=== PATIENT | male | born 1970 | race Caucasian/White ===

== ENCOUNTER 2024-09-15 07:51 | Inpatient (IN) | payer OTHER ==
[~2024-09-15] VITALS: Ht 177.8 cm; Wt 77.3 kg
[2024-09-15] MEDS: LORazepam 1 MG TAB PO STA (08:13)
[2024-09-15 08:25] LABS: HEMATOCRIT 46.5 % (42.0-52.0); HEMOGLOBIN 15.4 g/dl (13.5-17.5); MEAN CORPUSCULAR HEMOGLOBIN 29.6 pg (27.0-33.0); MEAN CORPUSCULAR HGB CONC 33.1 g/dl (32.0-36.5); MEAN CORPUSCULAR VOLUME 89.4 fl (80.0-96.0); PLATELET COUNT, AUTOMATED 590 10^3/uL (150-450); WHITE BLOOD COUNT 7.9 10^3/uL (4.0-10.0)
[2024-09-15 09:04] LABS: ETHYL ALCOHOL (ETHANOL) < 0.003 % (0.000-0.010)
[2024-09-15 09:05] LABS: SALICYLATE LEVEL < 3.0 MG/DL (<30)
[2024-09-15 09:06] LABS: ALBUMIN 3.9 G/DL (3.2-5.2); ALKALINE PHOSPHATASE 92 U/L (40-129); ALT/SGPT 23 U/L (7.0-40); AST/SGOT 13 U/L (<34); BILIRUBIN,DIRECT 0.1 MG/DL (<0.4); BILIRUBIN,TOTAL 0.4 MG/DL (0.3-1.2); BLOOD UREA NITROGEN 18 MG/DL (9-23); CALCIUM LEVEL 10.1 MG/DL (8.5-10.1); CARBON DIOXIDE LEVEL 26 MMOL/L (20-31); CHLORIDE LEVEL 108 MMOL/L (98-107); CREATININE FOR GFR 0.94 MG/DL (0.70-1.30); GLOMERULAR FILTRATION RATE > 60.0 (>56); GLUCOSE, FASTING 83 MG/DL (60-100); POTASSIUM SERUM 4.3 MMOL/L (3.5-5.1); SODIUM LEVEL 140 MMOL/L (136-145); TOTAL PROTEIN 7.1 G/DL (5.7-8.2)
[2024-09-15 09:08] LABS: THYROID STIMULATING HORMONE 1.613 uIU/ML (0.55-4.78)
[2024-09-15 09:26] LABS: BARBITURATES URINE NEGATIVE (NEGATIVE); BENZODIAZEPINES URINE NEGATIVE (NEGATIVE); COCAINE METABOLITE URINE NEGATIVE (NEGATIVE); METHADONE URINE NEGATIVE (NEGATIVE); OPIATES URINE NEGATIVE (NEGATIVE); PHENCYCLIDINE URINE NEGATIVE (NEGATIVE)
[2024-09-15 09:31] LABS: AMPHETAMINES LEVEL URINE POSITIVE (NEGATIVE); CANNABINOIDS URINE POSITIVE (NEGATIVE)
[2024-09-15] MEDS ORDERED: MOM 30ML SUSPENSION UDC PO PRN (10:20)
[2024-09-15 12:54] VITALS: BP 127/82; TEMP 96.4; O2SAT 99
[2024-09-15] MEDS: diphenhydrAMINE 25MG CAP PO PRN (21:26)
[2024-09-15] MEDS: OLANZapine ORAL DISINTEGRATING TAB 5MG PO PRN (21:26)
[2024-09-15] MEDS: traZODone 50 MG TAB PO PRN (21:27)
[2024-09-15] MEDS: ACETAMINOPHEN 325 MG TAB PO PRN (21:29)
[2024-09-16 06:32] VITALS: BP 126/70; TEMP 98.9; O2SAT 99
[2024-09-16] MEDS: IBUPROFEN 400MG TAB PO PRN (09:06)
[2024-09-16] MEDS: DULoxetine 30MG CAPSULE (CYMBALTA) PO SCH (10:11)
[2024-09-16 15:31] VITALS: BP 145/79; TEMP 98.7; O2SAT 99
[2024-09-16] MEDS: MIRTAZAPINE 15 MG TAB PO SCH (21:38)
[2024-09-16] MEDS: PRAZOSIN 1 MG CAP PO SCH (21:39)
[2024-09-17 06:29] VITALS: BP 128/84; TEMP 98.2; O2SAT 98
[2024-09-17] MEDS ORDERED: ONDANSETRON 4MG TAB PO PRN (08:35)
[2024-09-17] MEDS: cloNIDine 0.1MG TABLET PO SCH (08:50)
[2024-09-17] MEDS: BACLOFEN 5MG PER 1/2 TABLET PO SCH (09:33)
[2024-09-17 15:23] VITALS: BP 121/64; TEMP 97.7; O2SAT 98
[2024-09-17] MEDS: ALBUTEROL 90 MCG/ACT 8GM HFA INHALER INH SCH (16:04)
[2024-09-18 06:35] VITALS: BP 103/61; TEMP 98.8; O2SAT 96
[2024-09-18 14:56] VITALS: BP 126/71; TEMP 99.2; O2SAT 98
[2024-09-19 06:33] VITALS: BP 110/69; TEMP 98.4; O2SAT 99
[2024-09-19] MEDS: DULoxetine 20MG CAP (CYMBALTA) PO SCH (09:01)
[2024-09-19 14:00] VITALS: BP 105/61; TEMP 98.1; O2SAT 98
[2024-09-19] MEDS: SERTRALINE HCL 50 MG TAB PO SCH (20:34)
[2024-09-20 06:28] VITALS: BP 106/56; TEMP 97.5; O2SAT 98
[2024-09-20 15:20] VITALS: BP 109/59; TEMP 97.5; O2SAT 99
[2024-09-20] MEDS: OLANZapine 5 MG TAB PO SCH (20:37)
[2024-09-21 06:22] VITALS: BP 117/74; TEMP 98.6; O2SAT 96
[2024-09-21 15:03] VITALS: BP 127/75; TEMP 98.7; O2SAT 95
[2024-09-22 06:53] VITALS: BP 146/93; TEMP 98.5; O2SAT 98
[2024-09-22 14:57] VITALS: BP 121/75; TEMP 97.6; O2SAT 96
[2024-09-23 06:33] VITALS: BP_SYST 119; BP_SYST 145; BP_DIAS 79; BP_DIAS 93; TEMP 97.2; TEMP 97.9; O2SAT 97; O2SAT 98
[2024-09-24 06:28] VITALS: BP 156/89; TEMP 98.9; O2SAT 98
[2024-09-24] MEDS: SERTRALINE HCL 25 MG TABLET PO SCH ×2 (09:00→20:21)
[2024-09-24] MEDS: DIVALPROEX 250MG TAB PO SCH (10:24)
[2024-09-24 15:43] VITALS: BP 113/73; TEMP 99.5; O2SAT 96
[2024-09-25 06:30] VITALS: BP 141/81; TEMP 98.9; O2SAT 98
[2024-09-25] MEDS: methocarbamoL 500 MG TAB PO SCH (11:20)
[2024-09-25] MEDS: NICOTINE 21MG/24HR 1 EA TRANSDERMAL TD PRN (14:22)
[2024-09-25 15:28] VITALS: BP 148/88; TEMP 97.2; O2SAT 95
[2024-09-26 06:24] VITALS: BP 155/79; TEMP 96.8; O2SAT 96
[2024-09-26] MEDS: MAALOX 30 ML SUSP *UDC PO PRN (07:32)
[2024-09-26] MEDS: OMEPRAZOLE 20MG CAP PO SCH (12:12)
[2024-09-26] MEDS: DULoxetine 20MG CAP (CYMBALTA) PO SCH (12:12)
[2024-09-26 15:57] VITALS: BP 136/63; TEMP 97.8; O2SAT 96
[2024-09-26 20:12] VITALS: BP 170/95
[2024-09-26] MEDS: SIMVASTATIN 10 MG TAB PO SCH (20:12)
[2024-09-26 21:07] VITALS: BP 153/76
[2024-09-27 06:32] VITALS: BP 152/90; TEMP 97; O2SAT 96
[2024-09-27] MEDS ORDERED: DULO1CAP4 PO (09:21)
[2024-09-27] MEDS ORDERED: OLAN1TAB16 PO (09:21)
[2024-09-27] MEDS ORDERED: MIRT-10 PO (09:21)
[2024-09-27] MEDS ORDERED: NICO21PAT TD (09:21)
[2024-09-27] MEDS ORDERED: VENTAER INH (09:21)
[2024-09-27] MEDS ORDERED: SIMV10TA21 PO (09:21)
[2024-09-27] MEDS ORDERED: OMEP-173 PO (09:21)
[2024-09-27] MEDS ORDERED: METH-1164 PO (09:21)
[2024-09-27] MEDS ORDERED: DEPA250T32 PO (09:21)
[2024-09-27] MEDS ORDERED: PRAZ1CAP PO (09:21)
== END 2024-09-27 12:25 | disposition home or self-care (01) | DRG 753 ==
LOC: M ED 07:51 → M ED INP 10:17 → M PSY 11:51
PROVIDERS: ADMIT Psychiatry & Neurology Psychiatry; ATTEND Psychiatry & Neurology Psychiatry
DX: F33.8 Other recurrent depressive disorders (principal); R45.851 Suicidal ideations; F43.10 Post-traumatic stress disorder, unspecified; F19.90 Other psychoactive substance use, unspecified, uncomplicated; F60.89 Other specific personality disorders; F15.93 Other stimulant use, unspecified with withdrawal; F41.9 Anxiety disorder, unspecified; B34.9 Viral infection, unspecified; F17.200 Nicotine dependence, unspecified, uncomplicated; Z59.00 Homelessness unspecified; Z91.51 Personal history of suicidal behavior; Z76.5 Malingerer [conscious simulation]; Z56.0 Unemployment, unspecified

== ENCOUNTER 2024-10-03 03:32 | Inpatient (IN) | payer OTHER ==
[~2024-10-03] VITALS: Ht 177.8 cm; Wt 81.5 kg
[~2024-10-03 03:32] MED LIST: DEPA250T32 PO; DULO1CAP4 PO; METH-1164 PO; MIRT-10 PO; NICO21PAT TD; OLAN1TAB16 PO; OMEP-173 PO; PRAZ1CAP PO; SIMV10TA21 PO; VENTAER INH
[2024-10-03] MEDS: NS 1,000 ML IV ONE (03:55)
[2024-10-03 04:33] LABS: ETHYL ALCOHOL (ETHANOL) < 0.003 % (0.000-0.010); VALPROIC ACID (DEPAKOTE) 9.4 UG/ML (50.0-100.0)
[2024-10-03 04:34] LABS: SALICYLATE LEVEL < 3.0 MG/DL (<30)
[2024-10-03 04:35] LABS: ALBUMIN 3.9 G/DL (3.2-5.2); ALKALINE PHOSPHATASE 83 U/L (40-129); ALT/SGPT 26 U/L (7.0-40); AST/SGOT 30 U/L (<34); BILIRUBIN,DIRECT < 0.1 MG/DL (<0.4); BILIRUBIN,TOTAL 0.4 MG/DL (0.3-1.2); BLOOD UREA NITROGEN 24 MG/DL (9-23); CALCIUM LEVEL 9.8 MG/DL (8.5-10.1); CARBON DIOXIDE LEVEL 21 MMOL/L (20-31); CHLORIDE LEVEL 104 MMOL/L (98-107); GLOMERULAR FILTRATION RATE > 60.0 (>56); GLUCOSE, FASTING 100 MG/DL (60-100); POTASSIUM SERUM 4.3 MMOL/L (3.5-5.1); SODIUM LEVEL 139 MMOL/L (136-145); TOTAL PROTEIN 7.2 G/DL (5.7-8.2)
[2024-10-03 04:37] LABS: THYROID STIMULATING HORMONE 1.434 uIU/ML (0.55-4.78)
[2024-10-03 04:38] LABS: CPK CREATINE PHOSPHOKINASE 481 U/L (46-171)
[2024-10-03 04:47] LABS: BASO % 0.3 % (0.0-1.0); EOS # 0.1 10^3/uL (0.0-0.5); EOS % 0.9 % (0.0-3.0); HEMATOCRIT 38.3 % (42.0-52.0); HEMOGLOBIN 12.9 g/dl (13.5-17.5); LYMPH # 1.3 10^3/uL (1.5-5.0); LYMPH % 11.6 % (24.0-44.0); MEAN CORPUSCULAR HEMOGLOBIN 29.5 pg (27.0-33.0); MEAN CORPUSCULAR HGB CONC 33.7 g/dl (32.0-36.5); MEAN CORPUSCULAR VOLUME 87.4 fl (80.0-96.0); MONO # 0.9 10^3/uL (0.0-0.8); MONO % 7.4 % (2.0-8.0); NEUTROPHILS # 9.2 10^3/uL (1.5-8.5); NEUTROPHILS % 79.4 % (36.0-66.0); PLATELET COUNT, AUTOMATED 417 10^3/uL (150-450); RED BLOOD COUNT 4.38 10^6/uL (4.30-6.10); WHITE BLOOD COUNT 11.6 10^3/uL (4.0-10.0)
[2024-10-03 05:26] LABS: BARBITURATES URINE NEGATIVE (NEGATIVE); BENZODIAZEPINES URINE NEGATIVE (NEGATIVE); CANNABINOIDS URINE NEGATIVE (NEGATIVE); METHADONE URINE NEGATIVE (NEGATIVE); OPIATES URINE NEGATIVE (NEGATIVE); PHENCYCLIDINE URINE NEGATIVE (NEGATIVE)
[2024-10-03 05:27] LABS: AMPHETAMINES LEVEL URINE POSITIVE (NEGATIVE); COCAINE METABOLITE URINE POSITIVE (NEGATIVE)
[2024-10-03] MEDS ORDERED: MOM 30ML SUSPENSION UDC PO PRN (12:15)
[2024-10-03] MEDS ORDERED: MAALOX 30 ML SUSP *UDC PO PRN (12:15)
[2024-10-03] MEDS: IBUPROFEN 400MG TAB PO PRN (13:27)
[2024-10-03 13:40] VITALS: BP 138/80; TEMP 97.4; O2SAT 98
[2024-10-03] MEDS: NICOTINE 21MG/24HR 1 EA TRANSDERMAL TD SCH (14:50)
[2024-10-03] MEDS: ACETAMINOPHEN 325 MG TAB PO PRN (18:02)
[2024-10-03] MEDS: traZODone 50 MG TAB PO PRN (20:34)
[2024-10-03] MEDS: diphenhydrAMINE 25MG CAP PO PRN (20:34)
[2024-10-03] MEDS: traZODone 50 MG TAB PO ONE (22:26)
[2024-10-04 06:25] VITALS: BP 147/72; TEMP 97.5; O2SAT 96
[2024-10-04 06:29] VITALS: BP 135/87; TEMP 97; O2SAT 98
[2024-10-04] MEDS ORDERED: OLAN1TAB16 PO (09:29)
[2024-10-04] MEDS ORDERED: NICO21DI9 TD (09:29)
[2024-10-04] MEDS ORDERED: SIMV10TA21 PO (09:29)
[2024-10-04] MEDS ORDERED: MIRT-88 PO (09:29)
[2024-10-04] MEDS ORDERED: METH-1164 PO (09:29)
[2024-10-04] MEDS ORDERED: DIVA250T67 PO (09:29)
[2024-10-04] MEDS ORDERED: OMEP1CAP73 PO (09:29)
[2024-10-04] MEDS ORDERED: DULO20CA27 PO (09:29)
[2024-10-04] MEDS ORDERED: PRAZ1CAP PO (09:29)
[2024-10-04] MEDS ORDERED: VENTAER INH (09:29)
[2024-10-04] MEDS ORDERED: HOME MED LIST COMPLETE! XX SCH (09:30)
[2024-10-04] MEDS: OLANZapine ORAL DISINTEGRATING TAB 5MG PO PRN (09:55)
[2024-10-04] MEDS: DIVALPROEX 250MG TAB PO SCH (09:55)
[2024-10-04] MEDS: ALBUTEROL 90 MCG/ACT 8GM HFA INHALER INH PRN (11:20)
[2024-10-04] MEDS: ONDANSETRON 4MG TAB PO PRN (11:21)
[2024-10-04 17:24] VITALS: BP 140/78; TEMP 97; O2SAT 98
[2024-10-04] MEDS: methocarbamoL 500 MG TAB PO PRN (18:13)
[2024-10-04] MEDS: DICLOFENAC EPOLAMINE 1.3% PATCH TOP PRN (18:14)
[2024-10-04] MEDS: PRAZOSIN 1 MG CAP PO SCH (20:04)
[2024-10-04] MEDS: MIRTAZAPINE 15 MG TAB PO SCH (20:04)
[2024-10-05 06:44] VITALS: BP 151/84; TEMP 97.8; O2SAT 98
[2024-10-05] MEDS: buPROPion 75 MG TAB PO SCH (09:01)
[2024-10-05 15:41] VITALS: BP 153/67; TEMP 97.9; O2SAT 98
[2024-10-06 06:22] VITALS: BP 154/87; TEMP 97.5; O2SAT 98
[2024-10-06 15:34] VITALS: BP 130/81; TEMP 98.4; O2SAT 100
[2024-10-07 06:35] VITALS: BP 158/85; TEMP 97; O2SAT 98
[2024-10-07] MEDS: IBUPROFEN 600MG TAB PO PRN (10:53)
[2024-10-07] MEDS ORDERED: ACETAMINOPHEN 500 MG TAB PO PRN (16:00)
[2024-10-08 06:23] VITALS: BP 143/88; TEMP 98.5; O2SAT 100
[2024-10-08] MEDS: buPROPion 75 MG TAB PO SCH (09:09)
[2024-10-08] MEDS: ANALGESIC BALM CRM 3OZ TOP PRN (15:49)
[2024-10-08 15:51] VITALS: BP 148/86; TEMP 97.9; O2SAT 98
[2024-10-09 06:22] VITALS: BP 139/70; TEMP 97.5; O2SAT 100
[2024-10-09 15:01] VITALS: BP 144/80; TEMP 97.7; O2SAT 99
[2024-10-09] MEDS: QUEtiapine FUMARATE 50MG TAB PO SCH (20:45)
[2024-10-10 16:15] VITALS: BP 142/84; TEMP 97.7; O2SAT 98
[2024-10-11 06:46] VITALS: BP 138/82; TEMP 97.8; O2SAT 98
[2024-10-11 18:46] VITALS: BP 144/72; TEMP 97.8; O2SAT 97
[2024-10-12 06:30] VITALS: BP 129/64; TEMP 98.1; O2SAT 97
[2024-10-12] MEDS: QUEtiapine FUMARATE 25 MG TAB PO PRN (23:29)
[2024-10-13 06:33] VITALS: BP 150/88; TEMP 97.2; O2SAT 97
[2024-10-14 15:00] VITALS: BP 130/90; TEMP 98.4; O2SAT 98
[2024-10-14 20:48] VITALS: BP 148/74
[2024-10-15 06:32] VITALS: BP 121/78; TEMP 98.3; O2SAT 97
[2024-10-15] MEDS ORDERED: QUET50TA4 PO (13:36)
[2024-10-15] MEDS ORDERED: BUPR75TA5 PO (13:36)
[2024-10-15] MEDS ORDERED: DICL1PAT6 TOP (13:36)
== END 2024-10-15 14:31 | disposition home or self-care (01) | DRG 751 ==
LOC: M ED 03:32 → EEVIPCON 12:15 → M ED INP 12:15 → M PSY 13:08
PROVIDERS: ADMIT Psychiatry & Neurology Psychiatry; ATTEND Psychiatry & Neurology Psychiatry
DX: F33.2 Major depressive disorder, recurrent severe without psychotic features (principal); F43.10 Post-traumatic stress disorder, unspecified; F60.89 Other specific personality disorders; R45.851 Suicidal ideations; F14.90 Cocaine use, unspecified, uncomplicated; F15.90 Other stimulant use, unspecified, uncomplicated; M25.512 Pain in left shoulder; F41.9 Anxiety disorder, unspecified; F17.200 Nicotine dependence, unspecified, uncomplicated; J45.909 Unspecified asthma, uncomplicated; Z59.00 Homelessness unspecified; Z56.0 Unemployment, unspecified; Z91.51 Personal history of suicidal behavior; Z79.899 Other long term (current) drug therapy; Z76.5 Malingerer [conscious simulation]

== ENCOUNTER → 2024-10-25 | Outpatient (REF) | payer OTHER, MEDICAID ==
[~2024-10-25] MED LIST changes: +BUPR75TA5 PO; +DICL1PAT6 TOP; +DIVA250T67 PO; +DULO20CA27 PO; +MIRT-88 PO; +NICO21DI9 TD; +OMEP1CAP73 PO; +QUET50TA4 PO
== END ==
LOC: M LAB REF 12:04
PROVIDERS: ATTEND Family Medicine Addiction Medicine
DX: J02.9 Acute pharyngitis, unspecified (principal)

== ENCOUNTER 2024-11-13 14:49 | Inpatient (IN) | payer MEDICAID, OTHER ==
[~2024-11-13] VITALS: Ht 177.8 cm; Wt 71.1 kg
[2024-11-13] MEDS: LORazepam 1 MG TAB PO STA (15:44)
[2024-11-13 16:07] LABS: HEMATOCRIT 44.1 % (42.0-52.0); HEMOGLOBIN 14.7 g/dl (13.5-17.5); MEAN CORPUSCULAR HEMOGLOBIN 29.1 pg (27.0-33.0); MEAN CORPUSCULAR HGB CONC 33.3 g/dl (32.0-36.5); MEAN CORPUSCULAR VOLUME 87.3 fl (80.0-96.0); PLATELET COUNT, AUTOMATED 461 10^3/uL (150-450); RED BLOOD COUNT 5.05 10^6/uL (4.30-6.10); WHITE BLOOD COUNT 6.8 10^3/uL (4.0-10.0)
[2024-11-13 16:36] LABS: ETHYL ALCOHOL (ETHANOL) < 0.003 % (0.000-0.010)
[2024-11-13 16:38] LABS: SALICYLATE LEVEL < 3.0 MG/DL (<30)
[2024-11-13 16:39] LABS: ALBUMIN 3.6 G/DL (3.2-5.2); ALKALINE PHOSPHATASE 92 U/L (40-129); ALT/SGPT 21 U/L (7.0-40); AST/SGOT 10 U/L (<34); BILIRUBIN,DIRECT 0.1 MG/DL (<0.4); BILIRUBIN,TOTAL 0.4 MG/DL (0.3-1.2); BLOOD UREA NITROGEN 18 MG/DL (9-23); CALCIUM LEVEL 10.2 MG/DL (8.5-10.1); CARBON DIOXIDE LEVEL 25 MMOL/L (20-31); CHLORIDE LEVEL 104 MMOL/L (98-107); CK-MB VALUE MASS < 1.0 NG/ML (<3.6); CPK CREATINE PHOSPHOKINASE 43 U/L (46-171); CREATININE FOR GFR 0.82 MG/DL (0.70-1.30); GLOMERULAR FILTRATION RATE > 60.0 (>56); GLUCOSE, FASTING 89 MG/DL (60-100); MB/CK RELATIVE INDEX 2.32 (< OR =4); POTASSIUM SERUM 3.9 MMOL/L (3.5-5.1); SODIUM LEVEL 142 MMOL/L (136-145)
[2024-11-13 16:40] LABS: THYROID STIMULATING HORMONE 0.971 uIU/ML (0.55-4.78)
[2024-11-13] MEDS ORDERED: BUPR75TA5 PO (17:16)
[2024-11-13] MEDS ORDERED: QUET50TA4 PO (17:16)
[2024-11-13] MEDS ORDERED: DICL25TA12 PO (17:17)
[2024-11-13] MEDS ORDERED: HOME MED LIST COMPLETE! XX SCH (17:30)
[2024-11-13 17:50] LABS: AMPHETAMINES LEVEL URINE NEGATIVE (NEGATIVE); BARBITURATES URINE NEGATIVE (NEGATIVE); BENZODIAZEPINES URINE NEGATIVE (NEGATIVE); CANNABINOIDS URINE NEGATIVE (NEGATIVE); COCAINE METABOLITE URINE NEGATIVE (NEGATIVE); METHADONE URINE NEGATIVE (NEGATIVE); OPIATES URINE NEGATIVE (NEGATIVE); PHENCYCLIDINE URINE NEGATIVE (NEGATIVE)
[2024-11-13] MEDS ORDERED: MAALOX 30 ML SUSP *UDC PO PRN (19:25)
[2024-11-13] MEDS ORDERED: MOM 30ML SUSPENSION UDC PO PRN (19:25)
[2024-11-13 22:06] VITALS: BP 118/77; TEMP 97.7; O2SAT 99
[2024-11-13 22:10] VITALS: BP 118/77; TEMP 97.7; O2SAT 99
[2024-11-13] MEDS: diphenhydrAMINE 25MG CAP PO PRN (23:41)
[2024-11-13] MEDS: traZODone 50 MG TAB PO PRN (23:41)
[2024-11-14 06:40] VITALS: BP 135/73; TEMP 97.4; O2SAT 99
[2024-11-14] MEDS: NICOTINE 14 MG/24 HR TRANSDERMAL TD SCH (09:35)
[2024-11-14 15:16] VITALS: BP 116/77; TEMP 97.8; O2SAT 98
[2024-11-14] MEDS ORDERED: ALBUTEROL 90 MCG/ACT 8GM HFA INHALER INH PRN (16:45)
[2024-11-14] MEDS ORDERED: DICLOFENAC EPOLAMINE 1.3% PATCH TOP PRN (16:45)
[2024-11-14] MEDS ORDERED: PILL CUTTER 1 EACH XX PRN (17:00)
[2024-11-14] MEDS: QUEtiapine FUMARATE 50MG TAB PO SCH (20:15)
[2024-11-14] MEDS: methocarbamoL 500 MG TAB PO SCH (20:15)
[2024-11-14] MEDS: IBUPROFEN 400MG TAB PO PRN (20:15)
[2024-11-14] MEDS: DIVALPROEX 250MG TAB PO SCH (20:15)
[2024-11-14] MEDS: MIRTAZAPINE 15 MG TAB PO SCH (20:15)
[2024-11-14] MEDS: SIMVASTATIN 10 MG TAB PO SCH (20:15)
[2024-11-14] MEDS: PRAZOSIN 1 MG CAP PO SCH (20:16)
[2024-11-14] MEDS: OMEPRAZOLE 20MG CAP PO SCH (20:16)
[2024-11-15 06:33] VITALS: BP 123/65; TEMP 98.4; O2SAT 98
[2024-11-15] MEDS: buPROPion 75 MG TAB PO SCH (09:03)
[2024-11-15] MEDS: OLANZapine 5 MG TAB PO PRN (09:27)
[2024-11-15 15:59] VITALS: BP 123/64; TEMP 97.7; O2SAT 96
[2024-11-16 06:40] VITALS: BP 117/74; TEMP 98.2; O2SAT 96
[2024-11-16] MEDS: DIVALPROEX 500 MG TAB PO SCH (09:37)
[2024-11-16] MEDS: ACETAMINOPHEN 325 MG TAB PO PRN (14:33)
[2024-11-16] MEDS: LIDOCAINE VISCOUS 2% SOLN 15ML UDC SS PRN (14:37)
[2024-11-16 14:46] VITALS: BP 118/70; TEMP 99; O2SAT 97
[2024-11-17 06:30] VITALS: BP 146/88; TEMP 98.8; O2SAT 97
[2024-11-18 07:04] VITALS: BP 136/71; TEMP 96.8; O2SAT 98
[2024-11-18] MEDS: BENZOIN TINCTURE 60ML BTL TOP PRN (09:23)
[2024-11-18 14:55] VITALS: BP 126/73; TEMP 98.7; O2SAT 98
[2024-11-19 06:28] VITALS: BP 168/85; TEMP 97.8; O2SAT 98
[2024-11-19 15:49] VITALS: BP 132/68; TEMP 99; O2SAT 98
[2024-11-20 06:48] VITALS: BP 140/92; TEMP 98.4; O2SAT 97
[2024-11-20 14:59] VITALS: BP 127/81; TEMP 98.8; O2SAT 97
[2024-11-20 19:56] VITALS: BP 127/81
[2024-11-20] MEDS: DIVALPROEX 500 MG TAB PO SCH (19:57)
[2024-11-21 06:17] VITALS: BP 135/79; TEMP 98.2; O2SAT 99
[2024-11-21] MEDS ORDERED: DEPA1TAB3 PO (08:40)
== END 2024-11-21 11:09 | disposition home or self-care (01) | DRG 754 ==
LOC: M ED 14:49 → M ED INP 19:21 → M PSY 22:04
PROVIDERS: ADMIT Psychiatry & Neurology Neurology; ATTEND Psychiatry & Neurology Psychiatry
DX: F32.A Depression, unspecified (principal); F20.9 Schizophrenia, unspecified; R45.851 Suicidal ideations; F41.1 Generalized anxiety disorder; F43.10 Post-traumatic stress disorder, unspecified; F31.9 Bipolar disorder, unspecified; F14.90 Cocaine use, unspecified, uncomplicated; F15.90 Other stimulant use, unspecified, uncomplicated; F12.90 Cannabis use, unspecified, uncomplicated; F13.90 Sedative, hypnotic, or anxiolytic use, unspecified, uncomplicated; F17.210 Nicotine dependence, cigarettes, uncomplicated; K21.9 Gastro-esophageal reflux disease without esophagitis; Z79.899 Other long term (current) drug therapy

== ENCOUNTER 2024-12-07 21:07 | Emergency (ER) | payer MEDICAID, OTHER ==
[~2024-12-07] VITALS: Ht 177.8 cm; Wt 72.7 kg
[~2024-12-07 21:07] MED LIST changes: +DEPA1TAB3 PO; +DICL25TA12 PO
[2024-12-07 21:22] VITALS: BP 108/68; TEMP 96.6; O2SAT 96
== END 2024-12-07 23:10 | disposition left against medical advice (07) ==
LOC: EDBD 21:07 → M ED 21:07
DX: Z53.21 Procedure and treatment not carried out due to patient leaving prior to being seen by health care provider (principal)

== ENCOUNTER 2024-12-19 08:57 | Inpatient (IN) | payer OTHER ==
[~2024-12-19] VITALS: Ht 177.8 cm; Wt 74.9 kg
[2024-12-19 10:28] LABS: HEMATOCRIT 43.9 % (42.0-52.0); HEMOGLOBIN 14.3 g/dl (13.5-17.5); MEAN CORPUSCULAR HEMOGLOBIN 29.5 pg (27.0-33.0); MEAN CORPUSCULAR HGB CONC 32.6 g/dl (32.0-36.5); MEAN CORPUSCULAR VOLUME 90.5 fl (80.0-96.0); PLATELET COUNT, AUTOMATED 578 10^3/uL (150-450); RED BLOOD COUNT 4.85 10^6/uL (4.30-6.10); WHITE BLOOD COUNT 5.3 10^3/uL (4.0-10.0)
[2024-12-19 10:29] LABS: METHADONE URINE NEGATIVE (NEGATIVE)
[2024-12-19 10:30] LABS: AMPHETAMINES LEVEL URINE NEGATIVE (NEGATIVE); COCAINE METABOLITE URINE NEGATIVE (NEGATIVE); OPIATES URINE NEGATIVE (NEGATIVE); PHENCYCLIDINE URINE NEGATIVE (NEGATIVE)
[2024-12-19 10:33] LABS: ETHYL ALCOHOL (ETHANOL) < 0.003 % (0.000-0.010)
[2024-12-19 10:35] LABS: ALBUMIN 3.8 G/DL (3.2-5.2); ALKALINE PHOSPHATASE 78 U/L (40-129); ALT/SGPT 17 U/L (7.0-40); AST/SGOT 9 U/L (<34); BILIRUBIN,DIRECT < 0.1 MG/DL (<0.4); BILIRUBIN,TOTAL 0.4 MG/DL (0.3-1.2); BLOOD UREA NITROGEN 16 MG/DL (9-23); CALCIUM LEVEL 9.7 MG/DL (8.5-10.1); CARBON DIOXIDE LEVEL 25 MMOL/L (20-31); CHLORIDE LEVEL 105 MMOL/L (98-107); CREATININE FOR GFR 0.92 MG/DL (0.70-1.30); GLOMERULAR FILTRATION RATE > 60.0 (>56); GLUCOSE, FASTING 88 MG/DL (60-100); POTASSIUM SERUM 4.4 MMOL/L (3.5-5.1); SALICYLATE LEVEL < 3.0 MG/DL (<30); SODIUM LEVEL 142 MMOL/L (136-145); THYROID STIMULATING HORMONE 1.002 uIU/ML (0.55-4.78); TOTAL PROTEIN 7.4 G/DL (5.7-8.2)
[2024-12-19 10:43] LABS: BARBITURATES URINE NEGATIVE (NEGATIVE); BENZODIAZEPINES URINE NEGATIVE (NEGATIVE); CANNABINOIDS URINE POSITIVE (NEGATIVE)
[2024-12-19] MEDS ORDERED: DICL1PAT6 TOP (13:08)
[2024-12-19] MEDS ORDERED: DIVA500T94 PO (13:08)
[2024-12-19] MEDS ORDERED: HOME MED LIST COMPLETE! XX SCH (13:10)
[2024-12-19 14:35] VITALS: BP 115/64; TEMP 98.4; O2SAT 98
[2024-12-19] MEDS ORDERED: MOM 30ML SUSPENSION UDC PO PRN (16:05)
[2024-12-19] MEDS ORDERED: MAALOX 30 ML SUSP *UDC PO PRN (16:05)
[2024-12-19] MEDS ORDERED: NICOTINE POLACRILEX 2 MG GUM PO PRN (16:10)
[2024-12-19] MEDS: diphenhydrAMINE 25MG CAP PO PRN (20:05)
[2024-12-19] MEDS: traZODone 50 MG TAB PO PRN (20:05)
[2024-12-20 06:36] VITALS: BP 146/89; TEMP 98.7; O2SAT 99
[2024-12-20] MEDS: OLANZapine ORAL DISINTEGRATING TAB 5MG PO PRN (10:48)
[2024-12-20] MEDS: ACETAMINOPHEN 325 MG TAB PO PRN (10:48)
[2024-12-20] MEDS ORDERED: ALBUTEROL 90 MCG/ACT 8GM HFA INHALER INH PRN (11:15)
[2024-12-20] MEDS ORDERED: DICLOFENAC EPOLAMINE 1.3% PATCH TOP PRN (11:15)
[2024-12-20] MEDS: OMEPRAZOLE 20MG CAP PO SCH (12:43)
[2024-12-20] MEDS: methocarbamoL 500 MG TAB PO SCH (12:43)
[2024-12-20] MEDS: buPROPion 75 MG TAB PO SCH (12:43)
[2024-12-20 17:26] VITALS: BP 119/74; TEMP 98.2; O2SAT 98
[2024-12-20] MEDS: SIMVASTATIN 10 MG TAB PO SCH (20:39)
[2024-12-20] MEDS: QUEtiapine FUMARATE 50MG TAB PO SCH (20:39)
[2024-12-20] MEDS: MIRTAZAPINE 15 MG TAB PO SCH (20:39)
[2024-12-20] MEDS: DIVALPROEX 500 MG TAB PO SCH (20:40)
[2024-12-20] MEDS: PRAZOSIN 1 MG CAP PO SCH (20:40)
[2024-12-21 06:36] VITALS: BP 133/79; TEMP 98.2; O2SAT 96
[2024-12-21] MEDS: IBUPROFEN 400MG TAB PO PRN (09:21)
[2024-12-21] MEDS: PREGABALIN 50 MG CAP (LYRICA) PO SCH (10:19)
[2024-12-21 16:49] VITALS: BP 122/79; TEMP 98.7; O2SAT 99
[2024-12-22 06:26] VITALS: BP 144/86; TEMP 97.1; O2SAT 97
[2024-12-22 15:39] VITALS: BP 132/81; TEMP 98.7; O2SAT 97
[2024-12-23 06:21] VITALS: BP 129/84; TEMP 98.4; O2SAT 97
[2024-12-23] MEDS: OLANZapine ORAL DISINTEGRATING TAB 5MG PO ONE (12:13)
[2024-12-23 16:16] VITALS: BP 130/82; TEMP 98.5; O2SAT 96
[2024-12-23 20:08] VITALS: BP 130/82
[2024-12-24 06:50] VITALS: BP 148/81; TEMP 98.7; O2SAT 96
[2024-12-24] MEDS: OLANZapine ORAL DISINTEGRATING TAB 5MG PO PRN (08:35)
[2024-12-24] MEDS: CEPACOL LOZENGE PO PRN (12:57)
[2024-12-24] MEDS ORDERED: PREG50CA PO (14:36)
[2024-12-24] MEDS ORDERED: VENTAER INH (14:36)
[2024-12-24] MEDS ORDERED: OMEP1CAP73 PO (14:36)
[2024-12-24] MEDS ORDERED: BUPR75TA5 PO (14:36)
[2024-12-24] MEDS ORDERED: MIRT-84 PO (14:36)
[2024-12-24] MEDS ORDERED: NICO21DI9 TD (14:36)
[2024-12-24] MEDS ORDERED: QUET50TA4 PO (14:36)
[2024-12-24] MEDS ORDERED: DIVA500T94 PO (14:36)
[2024-12-24] MEDS ORDERED: SIMV10TA21 PO (14:36)
[2024-12-24] MEDS ORDERED: DICL25TA12 PO (14:36)
[2024-12-24] MEDS ORDERED: BENZ1LOZ9 PO (14:36)
== END 2024-12-24 17:21 | disposition home or self-care (01) | DRG 753 ==
LOC: EEVIPCON 08:57 → M ED 08:57 → M ED INP 12:53 → M PSY 14:32
PROVIDERS: ADMIT Psychiatry & Neurology Psychiatry; ATTEND Psychiatry & Neurology Psychiatry
DX: F31.9 Bipolar disorder, unspecified (principal); F41.9 Anxiety disorder, unspecified; F60.2 Antisocial personality disorder; R45.851 Suicidal ideations; F43.10 Post-traumatic stress disorder, unspecified; F17.200 Nicotine dependence, unspecified, uncomplicated; E78.5 Hyperlipidemia, unspecified; K21.9 Gastro-esophageal reflux disease without esophagitis; Z76.5 Malingerer [conscious simulation]; Z56.0 Unemployment, unspecified; Z79.899 Other long term (current) drug therapy

== ENCOUNTER → 2025-02-26 | Outpatient (REF) | payer OTHER, MEDICAID ==
[~2025-02-26] MED LIST changes: +BENZ1LOZ9 PO; +DIVA500T94 PO; +MIRT-84 PO; +PREG50CA PO
[2025-02-26 17:55] LABS: BASO # 0.1 10^3/uL (0.0-0.2); BASO % 1.1 % (0.0-1.0); EOS # 0.1 10^3/uL (0.0-0.5); EOS % 1.8 % (0.0-3.0); HEMATOCRIT 44.1 % (42.0-52.0); HEMOGLOBIN 14.8 g/dl (13.5-17.5); LYMPH # 1.6 10^3/uL (1.5-5.0); LYMPH % 28.7 % (24.0-44.0); MEAN CORPUSCULAR HGB CONC 33.6 g/dl (32.0-36.5); MEAN CORPUSCULAR VOLUME 89.3 fl (80.0-96.0); MONO # 0.4 10^3/uL (0.0-0.8); MONO % 6.6 % (2.0-8.0); NEUTROPHILS # 3.5 10^3/uL (1.5-8.5); NEUTROPHILS % 61.6 % (36.0-66.0); PLATELET COUNT, AUTOMATED 384 10^3/uL (150-450); RED BLOOD COUNT 4.94 10^6/uL (4.30-6.10); WHITE BLOOD COUNT 5.6 10^3/uL (4.0-10.0)
[2025-02-26 18:01] LABS: ERYTHROCYTE SEDIMENTATION RATE 10 mm/hr (0-20)
[2025-02-26 18:03] LABS: ALKALINE PHOSPHATASE 79 U/L (40-129); ALT/SGPT 15 U/L (7.0-40); AST/SGOT 11 U/L (<34); BILIRUBIN,TOTAL 0.5 MG/DL (0.3-1.2); BLOOD UREA NITROGEN 11 MG/DL (9-23); CALCIUM LEVEL 9.4 MG/DL (8.5-10.1); CARBON DIOXIDE LEVEL 28 MMOL/L (20-31); CHLORIDE LEVEL 104 MMOL/L (98-107); GLOMERULAR FILTRATION RATE > 90.0 (>56); GLUCOSE, FASTING 88 MG/DL (60-100); POTASSIUM SERUM 4.4 MMOL/L (3.5-5.1); SODIUM LEVEL 139 MMOL/L (136-145)
[2025-02-26 18:07] LABS: VITAMIN B12 LEVEL 534 PG/ML (211-911)
[2025-02-26 18:10] LABS: FOLATE 19.5 NG/ML (>5.4)
[2025-02-26 18:22] LABS: HEMOGLOBIN A1c 4.8 % (4.0-6.0)
== END ==
LOC: M LAB REF 17:05
PROVIDERS: ATTEND Student in an Organized Health Care Education/Training Program
DX: R20.0 Anesthesia of skin (principal)

== ENCOUNTER 2025-05-02 14:00 | Inpatient (IN) | payer MEDICAID, OTHER ==
[~2025-05-02] VITALS: Ht 177.8 cm; Wt 71.9 kg
[~2025-05-02 14:00] MED LIST changes: -DEPA250T32 PO; +DIVA-41 PO; +DIVA-65 PO; -DIVA500T94 PO; -PREG50CA PO; +PREG50CA87 PO
[2025-05-02] MEDS: LORazepam 1 MG TAB PO ONE (14:27)
[2025-05-02 14:39] LABS: PLATELET COUNT, AUTOMATED 372 10^3/uL (150-450)
[2025-05-02 14:56] LABS: BARBITURATES URINE NEGATIVE (NEGATIVE); BENZODIAZEPINES URINE NEGATIVE (NEGATIVE); METHADONE URINE NEGATIVE (NEGATIVE); OPIATES URINE NEGATIVE (NEGATIVE); PHENCYCLIDINE URINE NEGATIVE (NEGATIVE)
[2025-05-02 14:57] LABS: AMPHETAMINES LEVEL URINE POSITIVE (NEGATIVE); CANNABINOIDS URINE POSITIVE (NEGATIVE); COCAINE METABOLITE URINE POSITIVE (NEGATIVE)
[2025-05-02 14:59] LABS: ETHYL ALCOHOL (ETHANOL) 0.004 % (0.000-0.010)
[2025-05-02 15:00] LABS: ALT/SGPT 36 U/L (7.0-40); AST/SGOT 47 U/L (<34); CALCIUM LEVEL 9.0 MG/DL (8.5-10.1); CARBON DIOXIDE LEVEL 26 MMOL/L (20-31); CHLORIDE LEVEL 100 MMOL/L (98-107); CREATININE FOR GFR 1.04 MG/DL (0.70-1.30); GLOMERULAR FILTRATION RATE 85.3 (>56); POTASSIUM SERUM 3.8 MMOL/L (3.5-5.1); SALICYLATE LEVEL < 3.0 MG/DL (<30); SODIUM LEVEL 139 MMOL/L (136-145)
[2025-05-02] MEDS ORDERED: HOME MED LIST COMPLETE! XX SCH (20:25)
[2025-05-02] MEDS ORDERED: MOM 30 ML SUSPENSION UDC PO PRN (21:30)
[2025-05-02] MEDS ORDERED: MAALOX 30 ML SUSP *UDC PO PRN (21:30)
[2025-05-02 22:50] VITALS: BP 121/71; TEMP 97.2; O2SAT 98
[2025-05-03 06:34] VITALS: BP 133/70; TEMP 98.5; O2SAT 98
[2025-05-03] MEDS: LORazepam 1 MG TAB PO PRN (09:58)
[2025-05-03 15:24] VITALS: BP 106/60; TEMP 98.2; O2SAT 96
[2025-05-03 16:30] LABS: IRON (FE) 73 UG/DL (65-175); PERCENT SATURATION 29.1 % (19.7-50.0)
[2025-05-03 16:34] LABS: VITAMIN B12 LEVEL 649 PG/ML (211-911)
[2025-05-03] MEDS: IBUPROFEN 400 MG TAB PO PRN (22:27)
[2025-05-04 06:27] VITALS: BP 140/82; TEMP 98.1; O2SAT 98
[2025-05-04] MEDS: buPROPion **XL** 150 MG TABLET PO SCH (09:53)
[2025-05-04 11:29] VITALS: BP 140/82; TEMP 98.1; O2SAT 98
[2025-05-04] MEDS: NICOTINE 14 MG/24 HR TRANSDERMAL TD SCH (12:09)
[2025-05-04 15:24] VITALS: BP 116/58; TEMP 97.7; O2SAT 98
[2025-05-04] MEDS: DIVALPROEX 500 MG *ER* TAB PO SCH (20:51)
[2025-05-04] MEDS: QUEtiapine FUMARATE 50MG TAB PO SCH (20:51)
[2025-05-05 06:54] VITALS: BP 140/80; TEMP 97.9; O2SAT 99
[2025-05-05 09:59] VITALS: BP 140/80; TEMP 97.9; O2SAT 99
[2025-05-05 15:05] VITALS: BP 135/80; TEMP 97.8; O2SAT 98
[2025-05-06 06:17] VITALS: BP 143/82; TEMP 97.7; O2SAT 99
[2025-05-06] MEDS: LITHIUM CARBONATE 150 MG CAP PO SCH (10:27)
[2025-05-06 16:12] VITALS: BP 137/71; TEMP 97.8; O2SAT 98
[2025-05-06] MEDS: traZODone 50 MG TAB PO PRN (20:28)
[2025-05-06] MEDS: HALOPERIDOL 5 MG TAB PO PRN (22:07)
[2025-05-07 06:42] VITALS: BP 106/63; TEMP 97.8; O2SAT 98
[2025-05-07 15:00] VITALS: BP 111/75; TEMP 97.6; O2SAT 99
[2025-05-07] MEDS: ACETAMINOPHEN 325 MG TAB PO PRN (15:52)
[2025-05-08 06:26] VITALS: BP 114/68; TEMP 98.4; O2SAT 99
[2025-05-08 17:33] VITALS: BP 130/71; TEMP 97.3
[2025-05-08] MEDS: LITHIUM CARBONATE 150 MG CAP PO SCH (20:16)
[2025-05-09 06:38] VITALS: BP 105/59; TEMP 97.8; O2SAT 97
[2025-05-09] MEDS: buPROPion **XL** 150 MG TABLET PO SCH (08:19)
[2025-05-09 15:26] VITALS: BP 110/57; TEMP 97.8; O2SAT 99
[2025-05-10 06:13] VITALS: BP 116/64; TEMP 98.1; O2SAT 100
[2025-05-10 15:05] VITALS: BP 102/60; TEMP 98.1; O2SAT 100
[2025-05-11 06:34] VITALS: BP 110/53; TEMP 98.7; O2SAT 100
[2025-05-11 15:37] VITALS: BP 118/68; TEMP 98; O2SAT 100
[2025-05-12 06:31] VITALS: BP 108/59; TEMP 97.9; O2SAT 99
[2025-05-12 15:17] VITALS: BP 119/69; TEMP 97.8; O2SAT 99
[2025-05-12] MEDS: LORazepam 0.5 MG TAB PO PRN (20:52)
[2025-05-13 06:25] VITALS: BP 100/56; TEMP 98.4; O2SAT 99
[2025-05-13 15:37] VITALS: BP 141/91; TEMP 97.9; O2SAT 100
[2025-05-13 21:21] VITALS: BP 141/91
[2025-05-14] MEDS ORDERED: CLONI1TA PO (06:34)
[2025-05-14] MEDS ORDERED: HYDR-3363 PO (06:34)
[2025-05-14] MEDS ORDERED: BUPR150T12 PO (06:34)
[2025-05-14] MEDS ORDERED: LITH150C PO (06:34)
[2025-05-14] MEDS ORDERED: TRAZ-252 PO (06:34)
== END 2025-05-14 10:10 | disposition home or self-care (01) | DRG 753 ==
LOC: M ED 14:00 → M ED INP 21:27 → M PSY 22:45
PROVIDERS: ADMIT Psychiatry & Neurology Neurology; ATTEND Psychiatry & Neurology Neurology
DX: F31.81 Bipolar II disorder (principal); F14.20 Cocaine dependence, uncomplicated; F15.20 Other stimulant dependence, uncomplicated; Z91.148 Patient's other noncompliance with medication regimen for other reason; F41.0 Panic disorder [episodic paroxysmal anxiety]; F12.20 Cannabis dependence, uncomplicated; D64.9 Anemia, unspecified; F43.10 Post-traumatic stress disorder, unspecified; R45.851 Suicidal ideations; Z59.9 Problem related to housing and economic circumstances, unspecified; R74.01 Elevation of levels of liver transaminase levels

== ENCOUNTER 2025-05-14 10:14 | Emergency (ER) | payer OTHER ==
[~2025-05-14] VITALS: Ht 177.8 cm; Wt 68.1 kg
[~2025-05-14 10:14] MED LIST changes: +BUPR150T12 PO; +CLONI1TA PO; +HYDR-3363 PO; +LITH150C PO; +TRAZ-252 PO
[2025-05-14 12:20] VITALS: BP 150/78; TEMP 97.3; O2SAT 100
== END 2025-05-14 12:29 | disposition home or self-care (01) ==
LOC: MERGE 10:14 → M ED 10:14
DX: F43.20 Adjustment disorder, unspecified (principal); F31.9 Bipolar disorder, unspecified

== ENCOUNTER 2025-07-03 10:36 | Emergency (ER) | payer OTHER ==
[~2025-07-03] VITALS: Ht 177.8 cm; Wt 72.7 kg
[2025-07-03] MEDS ORDERED: PRAZ1CAP PO ×2 (11:09→12:47)
[2025-07-03] MEDS ORDERED: MIRT1TAB16 PO ×2 (11:10→12:47)
[2025-07-03] MEDS ORDERED: DIVA250T7 PO ×2 (11:10→12:47)
[2025-07-03] MEDS ORDERED: ARIP1TAB6 PO ×2 (11:11→12:47)
[2025-07-03 13:15] VITALS: BP 145/90; TEMP 97.8; O2SAT 98
== END 2025-07-03 13:20 | disposition home or self-care (01) ==
LOC: M ED 10:36
DX: F25.0 Schizoaffective disorder, bipolar type (principal); F60.9 Personality disorder, unspecified; F19.10 Other psychoactive substance abuse, uncomplicated; F17.200 Nicotine dependence, unspecified, uncomplicated